=== PATIENT | female | born 1935 | race Caucasian/White ===

== ENCOUNTER 2024-05-29 23:06 | Outpatient (CLI) | payer MEDICARE, BC, SELFPAY | END 2024-05-29 23:07 | disposition home or self-care (01) | LOC: AMB 06-03 11:18 | PROVIDERS: Visit Provider Family Medicine | DX: S79.912A Unspecified injury of left hip, initial encounter (principal); W18.30XA Fall on same level, unspecified, initial encounter; Y92.000 Kitchen of unspecified non-institutional (private) residence as the place of occurrence of the external cause | CPT/HCPCS: A0425; A0427 ==